=== PATIENT | female | born 1940 | race Caucasian/White ===

== ENCOUNTER 2016-06-26 08:06 | Inpatient (IN) | payer OTHER, MEDICARE ==
[2016-06-26] MEDS ORDERED: KETOROLAC TROMETHAMINE 30 MG/1 ML VIAL IVPUSH ONE (08:22)
[2016-06-26] MEDS ORDERED: KETOROLAC TROMETHAMINE 30 MG/1 ML VIAL ONE (08:23)
[2016-06-26] MEDS ORDERED: HYDROmorphone HCL CARPU-JECT 2 MG/1 ML DISP.SYRIN ONE (08:23)
[2016-06-26] MEDS ORDERED: HYDROmorphone HCL CARPU-JECT 1 MG/1 ML DISP.SYRIN IVPUSH ONE (08:23)
[2016-06-26 08:40] LABS: URINE APPEARANCE Slightly; URINE BILIRUBIN Negative (NEGATIVE); URINE GLUCOSE (UA) Negative (NEGATIVE); URINE KETONE Negative (NEGATIVE); URINE LEUK ESTERASE Trace (NEGATIVE); URINE NITRITE Negative (NEGATIVE); URINE PROTEIN Negative (NEGATIVE); URINE UROBILINOGEN 0.2 E.U/dl (0.2-1.0)
[2016-06-26 08:41] LABS: BASOPHIL 1.2 % (0-2.0); EOSINOPHIL 1.1 % (0-4.5); MCH 32.2 pg (25.7-33.7); MCHC 33.3 g/dl (32.0-36.0); MEAN CELL VOLUME 96.5 fl (80-96); MEAN PLT VOLUME 8.4 fl (7.5-11.1); NEUTROPHILS 73.4 % (42.8-82.8); PLATELET COUNT 222 K/MM3 (134-434); RDW 12.8 % (11.6-15.6); URINE BLOOD 3+ (NEGATIVE); URINE COLOR YELLOW; WHITE BLOOD COUNT 12.1 K/mm3 (4.0-10.0)
[2016-06-26 08:42] LABS: URINE BACTERIA MODERATE /hpf (NEGATIVE); URINE RBC 30-50 /hpf (0-3); URINE WBC 0-3 (3-5)
[2016-06-26 08:43] LABS: URINE MUCUS FEW
--- NOTE | 2016-06-26 08:44 | PDOC ---
History of Present Illness - General Chief Complaint: Pain, Acute Stated Complaint: LEFT FLANK PAIN Time Seen by Provider: 06/26/16 08:22 - History of Present Illness Initial Comments: 06/26/16 08:39 89-year-old female with a past medical history of prior left-sided kidney stones , most recently in 2013, when she had a 0.7 cm proximal left ureteral calculus, and was seen here in the emergency department She states that she did strain her urine, but does not think that she ever passed that stone, although the pain did resolve Surgical history-cholecystectomy Other medical history-hypertension The patient states that last evening she developed left flank pain radiating into her left abdomen, similar to her prior kidney stone type of pain She denies any dysuria urgency or frequency She states that she's had some diminished urine output She does feel nauseated, but has not vomited She denies any diarrhea She denies any gross hematuria She denies any fevers or chills She denies any right sided abdominal pain She denies any chest pain or shortness of breath Remainder the review of systems is negative Patient states that she is in severe pain at this time Past History - Past Medical History Allergies/Adverse Reactions: Allergies Allergy/AdvReac Type Severity Reaction Status Date / Time Penicillins Allergy Verified 06/26/16 08:07 Home Medications: Ambulatory Orders Nifedipine [Adalat cc] 90 mg PO DAILY 12/16/13 Levofloxacin [Levaquin -] 500 mg PO DAILY #7 tablet 06/27/16 Oxycodone HCl [Roxicodone -] 5 mg PO Q6H #20 tablet MDD 4 06/27/16 Tamsulosin HCl [Flomax] 0.4 mg PO DAILY #30 capsule 06/27/16 Anemia: No Asthma: No Cancer: Yes (basal cell of face) Cardiac Disorders: No CVA: No COPD: No CHF: No Dementia: No Diabetes: No GI Disorders: No Disorders: No HTN: Yes Hypercholesterolemia: No Kidney Stones: Yes Liver Disease: No Seizures: No Thyroid Disease: No - Surgical History Abdominal Surgery: No Appendectomy: No Cardiac Surgery: No Cholecystectomy: Yes Lung Surgery: No Neurologic Surgery: No Orthopedic Surgery: No - Psycho/Social/Smoking Cessation Hx Anxiety: No Suicidal Ideation: No Smoking History: Never smoked Hx Alcohol Use: No Drug/Substance Use Hx: No Substance Use Type: None Hx Substance Use Treatment: No Review of Systems - Review of Systems Able to Perform ROS?: Yes Comments:: 06/26/16 08:40 12 point review of systems is as per history of present illness and otherwise negative *Physical Exam - Vital Signs Last Vital Signs Temp Pulse Resp BP Pulse Ox 97.4 F L 71 18 174/104 100 06/26/16 08:06 06/26/16 08:06 06/26/16 08:06 06/26/16 08:06 06/26/16 08:06 - Physical Exam Comments: 06/26/16 08:41 Physical exam Last Vital Signs Temp Pulse Resp BP Pulse Ox 97.4 F L 71 18 174/104 100 06/26/16 08:06 06/26/16 08:06 06/26/16 08:06 06/26/16 08:06 06/26/16 08:06 GENERAL: The patient is awake, alert, and complaining of severe pain HEAD: Normal with no signs of trauma. EYES: Sclera anicteric ENT: Mucous membranes moist NECK: Normal range of motion, supple LUNGS: Breath sounds equal, clear to auscultation bilaterally. No wheezes, and no crackles. HEART: Regular rate and rhythm, normal S1 and S2 without murmur, rub or gallop. ABDOMEN: Soft, nontender, normoactive bowel sounds. No guarding, no rebound. No masses appreciated. There is no CVA tenderness, and no abdominal tenderness to palpation EXTREMITIES: Normal range of motion, no edema. No clubbing or cyanosis. No cords, erythema, or tenderness. NEUROLOGICAL: Cranial nerves II through XII grossly intact. Normal speech, normal gait. PSYCH: Normal mood, normal affect. SKIN: Warm, Dry, normal turgor, no rashes or lesions noted. ED Treatment Course - LABORATORY CBC & Chemistry Diagram: 06/27/16 07:30 06/27/16 07:30 - RADIOLOGY Radiology Studies Ordered: Category Date Time Status ABDOMEN & PELVIS CT W/O CONTR [CT] Stat CT Scan 06/26/16 08:36 Ordered - Medications Given in the ED: ED Medications Discontinued Medications Generic Name Dose Route Start Last Admin Trade Name Freq PRN Reason Stop Dose Admin Hydromorphone HCl 0.5 mg 06/26/16 08:23 06/26/16 08:27 Dilaudid Injection - IVPUSH 06/26/16 08:24 0.5 mg ONCE ONE Administration Ketorolac Tromethamine 15 mg 06/26/16 08:22 06/26/16 08:27 Toradol Injection - IVPUSH 06/26/16 08:23 15 mg ONCE ONE Administration Medical Decision Making - Medical Decision Making 06/26/16 08:42 Patient with a history of prior kidney stones on the left side, most recently in 2013, she had a 0.7 cm obstructing calculus in the proximal left ureter, with left sided hydronephrosis and hydroureter She did strain her urine, but thinks she never passed that stone, although the pain did go away She states with her prior kidney stones, she strained her urine, and was always able to retrieve the stone when it passed Given the above, will control pain, hydrate, and I would check a CT scan at this time/KSP 06/26/16 10:31 CT scan of the abdomen and pelvis as read by me There is ++ left hydronephrosis, proximal to a very large left proximal ureter stone (.7cm) There is inflammatory stranding around the kidney Other stones are noted that are nonobstructing There is a staghorn calculus on the right, without hydronephrosis or obstruction Awaiting radiology report Labwork is significant for white count of 12.1 BUN to creatinine 21 and 1.0 UA significant for 3+ blood, 30-50 red cells, 0-3 white cells, positive for moderate bacteria Laboratory Results - last 24 hr 06/26/16 06/26/16 06/26/16 08:20 08:20 08:20 WBC 12.1 H RBC 4.84 Hgb 15.6 H Hct 46.8 H MCV 96.5 H MCHC 33.3 RDW 12.8 Plt Count 222 MPV 8.4 D Neutrophils % 73.4 Lymphocytes % 15.8 D Monocytes % 8.5 Eosinophils % 1.1 D Basophils % 1.2 D Sodium 134 L Potassium 4.0 Chloride 99 Carbon Dioxide 26 Anion Gap 9 BUN 21 H Creatinine 1.1 D Creat Clearance w eGFR 48.42 Random Glucose 134 H Calcium 10.1 Total Bilirubin 0.8 AST 22 D ALT 19 D Alkaline Phosphatase 67 Total Protein 7.7 Albumin 4.1 Urine Color Yellow Urine Appearance Slightly Urine pH 7.0 D Ur Specific [place] 1.020 Urine Protein Negative Urine Glucose (UA) Negative Urine Ketones Negative Urine Blood 3+ H Urine Nitrite Negative Urine Bilirubin Negative Urine Urobilinogen 0.2 e.u/dl Ur Leukocyte Esterase Trace Urine RBC 30-50 Urine WBC 0-3 Ur Epithelial Cells Moderate Urine Bacteria Moderate Urine Mucus Few 06/26/16 10:46 High-grade obstruction, elevated white count, positive bacteria and urine Patient is ALLERGIC to penicillins-states that she gets hives Will give IV Levaquin Case discussed with Dr. Carmona-primary care physician Case discussed with Dr. Dr. [id number] with above-will see patient inpatient consultation 06/26/16 11:38 Case discussed with hospitalist-will admit/place in observation *DC/Admit/Observation/Transfer Diagnosis at time of Disposition: Left flank pain, Ureteral stone with hydronephrosis - Discharge Dispostion Condition at time of disposition: Stable Admit: Yes - Prescriptions - Referrals
[2016-06-26] MEDS ORDERED: SODIUM CHLORIDE 1,000 ML IV SCH ×2 (08:45→16:59)
[2016-06-26 08:48] LABS: ALBUMIN 4.1 g/dl (3.5-5.0); BILIRUBIN,TOTAL 0.8 mg/dl (0.2-1.0); CALCIUM 10.1 mg/dl (8.4-10.2); CREATININE 1.1 mg/dl (0.6-1.3); TOT PROT 7.7 g/dl (6.4-8.3)
[2016-06-26] MEDS ORDERED: ACETAMINOPHEN 1000 MG/100 ML VIAL (NON FORMULARY) IVPB ONE (09:08)
[2016-06-26] MEDS ORDERED: ACETAMINOPHEN INJECTION 100 ML IVPB ONE (09:14)
[2016-06-26] MEDS ORDERED: LEVOFLOXACIN 500 MG IVPB 100 ML IVPB ONE ×2 (10:47→11:12)
[2016-06-26] MEDS ORDERED: TAMSULOSIN HCL 0.4 MG CAP.ER.24H (FP) PO ONE (11:39)
[2016-06-26] MEDS ORDERED: TAMSULOSIN HCL 0.4 MG CAP.ER.24H (FP) ONE (11:50)
--- NOTE | 2016-06-26 12:49 | CON.GU ---
Consult Consult Specialty:: Urology Referred by:: Dr Carmona Reason for Consultation:: Left flank pain/renal colic - History of Present Illness Chief Complaint: Left flank pain - History Source History Provided By: Patient - Alcohol/Substance Use Hx Alcohol Use: No - Smoking History Smoking history: Never smoked Home Medications - Allergies Allergies/Adverse Reactions: Allergies Allergy/AdvReac Type Severity Reaction Status Date / Time Penicillins Allergy Verified 06/26/16 08:07 - Home Medications Home Medications: Ambulatory Orders Nifedipine [Adalat cc] 90 mg PO DAILY 12/16/13 Physical Exam- Vital Signs: Vital Signs Temperature 97.4 F L 06/26/16 08:06 Pulse Rate 71 06/26/16 08:06 Respiratory Rate 18 06/26/16 08:06 Blood Pressure 174/104 06/26/16 08:06 O2 Sat by Pulse Oximetry (%) 100 06/26/16 08:06 Labs: CBC, BMP 06/26/16 08:20 06/26/16 08:20 Assessment/Plan 76 yo female w long hx of renal calculi deferred tx now presents w left flank pain No f/c/ns no n/v Pt currently comfortable VSS normotensive hr 70 Left flank pain mild Abd soft WBC [address] reviewed Right partial staghorn left prox ureteral stone approx 7 mm w hydro Discussed options of eswl vs urs for left side stone currently causing symptoms Right would require mult procedures poss PCN nephrostolithotomy Currently no indication for stenting Cont iv abx strain urine analgesics prn
--- NOTE | 2016-06-26 16:25 | HP ---
CHIEF COMPLAINT: Left flank pain PCP: Kristine HISTORY OF PRESENT ILLNESS: This 76 year old female with pmhx of HTN with hx of Left sided kidney stone in 2013. At that time she was sent home with pain medication and did not follow up as symptoms resolved. Last night she experienced Left sided flank pain similar to her 2014 episode and it worsened to the point she presented to the ED. She states she pain medication has controlled the pain at this time. Recently, on Wednesday she underwent skin freezing to her Right check and inferior orbital region and had skin removed on the tip of her nose from basal cell carcinoma. She denies fever, chills, CP, abd pain, n, v, difficulty urinating. She does have urinary frequency but says this is a chronic problem related to age. ER course was notable for: (1) WBC 12.1 (2) CTAP shows hydronephrosis with approx 7 mm stone (3) Levaquin 500mg x1 Recent Travel: PAST MEDICAL HISTORY: HTN, basal cell carcinoma (nose) PAST SURGICAL HISTORY: see HPI Social History: Smoking: Alcohol: Drugs: Family History: Allergies Penicillins Allergy (Verified 06/26/16 08:07) HOME MEDICATIONS: Home Medications Medication Instructions Recorded Nifedipine [Adalat cc] 90 mg PO DAILY 12/16/13 REVIEW OF SYSTEMS CONSTITUTIONAL: Absent: fever, chills, diaphoresis, generalized weakness, malaise, loss of appetite, weight change HEENT: Absent: rhinorrhea, nasal congestion, throat pain, throat swelling, difficulty swallowing, mouth swelling, ear pain, eye pain, visual changes CARDIOVASCULAR: Absent: chest pain, syncope, palpitations, irregular heart rate, lightheadedness , peripheral edema RESPIRATORY: Absent: cough, shortness of breath, dyspnea with exertion, orthopnea, wheezing, stridor, hemoptysis GASTROINTESTINAL: Absent: abdominal pain, abdominal distension, nausea, vomiting, diarrhea, constipation, melena, hematochezia GENITOURINARY: L sided flank pain Absent: dysuria, frequency, urgency, hesitancy, hematuria, , genital pain MUSCULOSKELETAL: Absent: myalgia, arthralgia, joint swelling, back pain, neck pain SKIN: Absent: rash, itching, pallor HEMATOLOGIC/IMMUNOLOGIC: Absent: easy bleeding, easy bruising, lymphadenopathy, frequent infections ENDOCRINE: Absent: unexplained weight gain, unexplained weight loss, heat intolerance, cold intolerance NEUROLOGIC: Absent: headache, focal weakness or paresthesias, dizziness, unsteady gait, seizure, mental status changes, bladder or bowel incontinence PSYCHIATRIC: Absent: anxiety, depression, suicidal or homicidal ideation, hallucinations. PHYSICAL EXAMINATION Vital Signs - 24 hr 06/26/16 06/26/16 08:06 15:03 Temperature 97.4 F L 98.2 F Pulse Rate 71 Pulse Rate [ 73 Right] Respiratory 18 18 Rate Blood Pressure 174/104 Blood Pressure 116/65 [Left Arm] O2 Sat by Pulse 100 96 Oximetry (%) GENERAL: Awake, alert, and fully oriented, in no acute distress. HEAD: Normal with no signs of trauma. EYES: Pupils equal, round and reactive to light, extraocular movements intact, sclera anicteric, conjunctiva clear. No lid lag. EARS, NOSE, THROAT: Ears normal, nares patent, oropharynx clear without exudates. Moist mucous membranes. NECK: Normal range of motion, supple without lymphadenopathy, JVD, or masses. LUNGS: Breath sounds equal, clear to auscultation bilaterally. No wheezes, and no crackles. No accessory muscle use. HEART: Regular rate and rhythm, normal S1 and S2 without murmur, rub or gallop. ABDOMEN: Soft, nontender, not distended, normoactive bowel sounds, no guarding, no rebound, no masses. No hepatomegaly or splenomegaly. L sided flank tenderness MUSCULOSKELETAL: Normal range of motion at all joints. No bony deformities or tenderness. No CVA tenderness. UPPER EXTREMITIES: 2+ pulses, warm, well-perfused. No cyanosis. No clubbing. Cap refill <2 seconds. No peripheral edema. LOWER EXTREMITIES: 2+ pulses, warm, well-perfused. No calf tenderness. +1 le b/ l pitting edema . NEUROLOGICAL: Cranial nerves II-XII intact. Normal speech. Normal gait. PSYCHIATRIC: Cooperative. Good eye contact. Appropriate mood and affect. SKIN: Warm, dry, normal turgor, no rashes or lesions noted. Laboratory Results - last 24 hr 06/26/16 06/26/16 06/26/16 08:20 08:20 08:20 WBC 12.1 H RBC 4.84 Hgb 15.6 H Hct 46.8 H MCV 96.5 H MCHC 33.3 RDW 12.8 Plt Count 222 MPV 8.4 D Neutrophils % 73.4 Lymphocytes % 15.8 D Monocytes % 8.5 Eosinophils % 1.1 D Basophils % 1.2 D Sodium 134 L Potassium 4.0 Chloride 99 Carbon Dioxide 26 Anion Gap 9 BUN 21 H Creatinine 1.1 D Creat Clearance w eGFR 48.42 Random Glucose 134 H Calcium 10.1 Total Bilirubin 0.8 AST 22 D ALT 19 D Alkaline Phosphatase 67 Total Protein 7.7 Albumin 4.1 Urine Color Yellow Urine Appearance Slightly Urine pH 7.0 D Ur Specific [place] 1.020 Urine Protein Negative Urine Glucose (UA) Negative Urine Ketones Negative Urine Blood 3+ H Urine Nitrite Negative Urine Bilirubin Negative Urine Urobilinogen 0.2 e.u/dl Ur Leukocyte Esterase Trace Urine RBC 30-50 Urine WBC 0-3 Ur Epithelial Cells Moderate Urine Bacteria Moderate Urine Mucus Few CTAP reviewed Assessment: 76 year old female with HTN admitted with nephrolithiasis with hydronephrosis Plan: 1. b/l Nephrolithiasis with L 7mm with hydro - Continue IV abx and fluids - As d/w urology pt eswl vs urs for left side stone requiring multiple procedures - No acute indication for stent at this time - Monitor wbc, signs of evolving infection - Urology consult appreciated 2. HTN - Continue Nifedipine 3. DVT PPx - Heparin sq q8 Problem List - Problem (1) Left flank pain Code(s): R10.9 - UNSPECIFIED ABDOMINAL PAIN (2) Ureteral stone with hydronephrosis Code(s): N13.2 - HYDRONEPHROSIS WITH RENAL AND URETERAL CALCULOUS OBSTRUCTION (3) Renal colic on left side Code(s): N23 - UNSPECIFIED RENAL COLIC Visit type - Emergency Visit Emergency Visit: Yes Care time: The patient presented to the Emergency Department on the above date and was hospitalized for further evaluation of their emergent condition. - New Patient This patient is new to me today: Yes Date on this admission: 06/26/16 - Critical Care Critical Care patient: No
[2016-06-26] MEDS ORDERED: oxyCODONE HCL 5 MG TABLET PO PRN (16:59)
[2016-06-26 18:24] VITALS: BMI 31.8
[2016-06-27 05:44] VITALS: BP 133/70; PULSE 77; TEMP 98.6
[2016-06-27 08:24] LABS: BASOPHIL 0.4 % (0-2.0); MCH 32.8 pg (25.7-33.7); MCHC 34.1 g/dl (32.0-36.0); MEAN CELL VOLUME 96.2 fl (80-96); MEAN PLT VOLUME 8.8 fl (7.5-11.1); NEUTROPHILS 66.1 % (42.8-82.8); PLATELET COUNT 192 K/MM3 (134-434); RDW 12.6 % (11.6-15.6); WHITE BLOOD COUNT 8.4 K/mm3 (4.0-10.0)
[2016-06-27] MEDS ORDERED: TAMSULOSIN HCL 0.4 MG CAP.ER.24H (FP) PO SCH (08:30)
[2016-06-27 08:32] LABS: ALBUMIN 3.2 g/dl (3.5-5.0); ALK PHOS 57 U/L (32-92); ANION GAP 5 (8-16); BILIRUBIN,TOTAL 1.1 mg/dl (0.2-1.0); CALCIUM 9.4 mg/dl (8.4-10.2); CO2 26 mmol/L (22-28); CREATININE 0.9 mg/dl (0.6-1.3); GLUCOSE,RANDOM 104 mg/dl (74-106); MAGNESIUM 1.8 mg/dL (1.8-2.4); SGOT/AST 20 U/L (10-42); SGPT/ALT 17 U/L (10-40); TOT PROT 6.5 g/dl (6.4-8.3)
[2016-06-27] MEDS ORDERED: LEVOFLOXACIN 500 MG IVPB 100 ML IVPB SCH (10:00)
--- NOTE | 2016-06-27 10:51 | DS ---
Physical Exam: SUBJECTIVE: Patient seen and examined OBJECTIVE: Vital Signs Period Temp Pulse Resp BP Sys/Mccall Pulse Ox Last 24 Hr 98.4 F-98.6 F 77-87 16-19 133-159/70-72 92-92 Last Vital Signs Temp Pulse Resp BP Pulse Ox 98.6 F 77 19 133/70 92 L 06/27/16 04:00 06/27/16 04:00 06/27/16 09:00 06/27/16 04:00 06/27/16 09:00 Microbiology 06/26/16 10:45 Blood - Peripheral Venous Blood Culture - Preliminary NO GROWTH OBTAINED AFTER 24 HOURS, INCUBATION TO CONTINUE FOR 4 DAYS. 06/26/16 11:00 Blood - Peripheral Venous Blood Culture - Preliminary NO GROWTH OBTAINED AFTER 24 HOURS, INCUBATION TO CONTINUE FOR 4 DAYS. 06/26/16 08:18 Urine - Urine Clean Catch Urine Culture - Final NO GROWTH OBTAINED PHYSICAL EXAM GENERAL: The patient is awake, alert, and fully oriented, in no acute distress. HEAD: Normal with no signs of trauma. EYES: PERRL, extraocular movements intact, sclera anicteric, conjunctiva clear. ENT: Ears normal, nares patent, oropharynx clear without exudates, moist mucous membranes. NECK: Trachea midline, full range of motion, supple. LUNGS: Breath sounds equal, clear to auscultation bilaterally, no wheezes, no crackles, no accessory muscle use. HEART: Regular rate and rhythm, S1, S2 without murmur, rub or gallop. ABDOMEN: Soft, nontender, nondistended, normoactive bowel sounds, no guarding, no rebound, no hepatosplenomegaly, no masses. EXTREMITIES: 2+ pulses, warm, well-perfused, no edema. NEUROLOGICAL: Cranial nerves II through XII grossly intact. Normal speech, gait not observed. PSYCH: Normal mood, normal affect. SKIN: Warm, dry, normal turgor, no rashes or lesions noted. LABS Laboratory Results - last 24 hr 06/27/16 06/27/16 07:30 07:30 WBC 8.4 D RBC 4.39 Hgb 14.4 Hct 42.3 MCV 96.2 H MCHC 34.1 RDW 12.6 Plt Count 192 MPV 8.8 Neutrophils % 66.1 Lymphocytes % 19.6 D Monocytes % 11.9 H Eosinophils % 2.0 D Basophils % 0.4 Sodium 139 Potassium 3.9 Chloride 108 H Carbon Dioxide 26 Anion Gap 5 L BUN 14 D Creatinine 0.9 Creat Clearance w eGFR > 60 Random Glucose 104 D Calcium 9.4 Magnesium 1.8 Total Bilirubin 1.1 H D AST 20 ALT 17 Alkaline Phosphatase 57 Total Protein 6.5 Albumin 3.2 L D HOSPITAL COURSE: Date of Admission:06/26/16 Date of Discharge: 06/27/16 76 year old female with pmhx of HTN with hx of Left sided kidney stone in 2013. presented to the ER with c/o left sided flank pain similar to her 2014 episode. She reports that usually gets some relief from pain medication. Recently, on Wednesday she underwent skin freezing to her Right check and inferior orbital region and had skin removed on the tip of her nose from basal cell carcinoma. In ther ER, labs were drawn, a CT scan was done and pt was found to have : 0.6- 0.7 cm left ureteral stone with resultant hydronephrosis, Ua was consistent with UTI, pat was started on empiric ABT with levaquin,IV hydration, pain management, urology was consulted for assistance. Per urology may D/c pt home today on oral levaquin x7 more days and f/u in office as outpt, pt D/c home in stable condition, with instruction to f/u with urology and PCP, intruct to report to ER if develop fever/chills she verbalized understanding. Minutes to complete discharge: 35 Discharge Summary Reason For Visit: LEFT FLANK PAIN & HYDRONEPHROSIS Current Active Problems Left flank pain (Acute) Ureteral stone with hydronephrosis (Acute) Condition: Stable - Instructions Diet, Activity, Other Instructions: Strain all urine Encourage PO fluids Report to ER if develop fever/chills F/u with urology in 1 week F/u with PMD Referrals: Jackson Carmona MD [Primary Care Provider] - Disposition: HOME - Home Medications Comprehensive Discharge Medication List: Ambulatory Orders Nifedipine [Adalat cc] 90 mg PO DAILY 12/16/13 Levofloxacin [Levaquin -] 500 mg PO DAILY #7 tablet 06/27/16 Oxycodone HCl [Roxicodone -] 5 mg PO Q4H PRN 7 Days MDD 6 tabs 06/27/16 Tamsulosin HCl [Flomax -] 0.4 mg PO DAILY@0830 cap.er.24h 06/27/16 This patient is new to me today: Yes Date on this admission: 06/27/16 Emergency Visit: Yes ED Registration Date: 06/26/16 Care time: The patient presented to the Emergency Department on the above date and was hospitalized for further evaluation of their emergent condition. Critical Care patient: No - Discharge Referral Referred to [facility] Yes Physician Referral: Roderick Swan MD (Int Med)
== END 2016-06-27 11:30 | disposition home or self-care (01) | DRG 694 ==
LOC: FER 08:06 → FM/S 16:52
PROVIDERS: ADMIT Internal Medicine
DX: N13.2 Hydronephrosis with renal and ureteral calculous obstruction (principal); I10 Essential (primary) hypertension
CPT/HCPCS: 36415; 74176-TC; 80053; 81003; 81015; 83735; 85025; 87040; 87086; 99285-25

== ENCOUNTER 2016-07-10 06:31 | Day surgery (SDC) | payer OTHER, MEDICARE ==
[2016-07-09 16:48] VITALS: BMI 31.8
[~2016-07-10 06:31] MED LIST: LACTATED RINGERS SOLUTION 1,000 ML IV SCH; ONDANSETRON 4 MG/2 ML VIAL IVPUSH PRN; PROMETHAZINE HCL 25 MG/1 ML VIAL IVPUSH PRN
[2016-07-10] MEDS ORDERED: MIDAZOLAM HCL 2 MG/2 ML SINGLE DOSE VIAL ONE (07:56)
--- NOTE | 2016-07-10 08:01 | HP ---
History & Physical Update - History History: No Change - Physical Physical: No Change - Assessment Assessment: No Change - Plan Plan: No Change
[2016-07-10] MEDS ORDERED: IBUPROFEN 800 MG/8 ML IJ IVPB PRN (08:02)
[2016-07-10] MEDS ORDERED: ACETAMINOPHEN 1000 MG/100 ML VIAL (NON FORMULARY) IVPB ONE (08:02)
[2016-07-10] MEDS ORDERED: ONDANSETRON 4 MG/2 ML VIAL ONE (08:07)
[2016-07-10] MEDS ORDERED: ceFAZolin SODIUM 1 GM VIAL ONE (08:07)
[2016-07-10] MEDS ORDERED: DEXTROSE 5%-0.45% SALINE 1,000 ML IV SCH (08:15)
[2016-07-10] MEDS ORDERED: SUCCINYLCHOLINE CHLORIDE 200 MG/10 ML VIAL ONE (08:16)
[2016-07-10] MEDS ORDERED: PROPOFOL 20 ML ONE (08:16)
[2016-07-10] MEDS ORDERED: ACETAMINOPHEN INJECTION 100 ML IVPB ONE (08:48)
[2016-07-10 09:47] VITALS: TEMP 97.7
[2016-07-10 11:22] VITALS: BP 110/70; PULSE 66
--- NOTE | 2016-07-11 11:57 | OP ---
DATE OF OPERATION: 07/10/2016 PREOPERATIVE DIAGNOSIS: Obstructive left kidney, hydronephrosis, upper ureteral stone. POSTOPERATIVE DIAGNOSIS: Obstructive left kidney, hydronephrosis, upper ureteral stone. PROCEDURE: Cystoscopy, retrograde pyelogram, left ureteral stent placement. ANESTHESIA: General, Dr. Ulloa. FINDINGS: High-grade obstruction of the left ureter with a large stone and severe hydronephrosis. DRAINS: A 26 x 6 double-J ureteral stent. ESTIMATED BLOOD LOSS: None. SPECIMENS: Urine culture. PREOPERATIVE INDICATIONS: The patient is a 76-year-old female who presents to the office with a right-sided staghorn calculus with mild hydronephrosis and left-sided severe hydronephrosis with an obstructing stone in the upper ureter. She is feeling well. She was placed on antibiotics orally and was recommended she have a stent placed. She is planning to travel over the next week, and a ureteral stent to relieve high-grade obstruction was recommended. She comes to the OR. DESCRIPTION OF PROCEDURE: The patient was brought to the OR, placed on the table in the supine position, given general anesthesia and IV antibiotics and placed in the modified lithotomy position. Timeout was performed. Cystoscopy was performed. The urethra demonstrated a small urethral carbuncle, otherwise was normal. The bladder itself appeared to be unremarkable. Both UOs were visualized. A wire was passed up into the left ureteral orifice, over which an open-ended catheter was placed. Retrograde pyelogram revealed a high-grade obstruction in the upper ureter. No contrast reached above the level of the stone, which was in the upper ureter. The open-ended catheter was passed up to the level of the stone, and a Glidewire was needed to bypass the stone. There was some tortuosity of the ureter, but ultimately the wire and open-ended were manipulated so that the open-ended catheter could be passed into the renal pelvis itself. Retrograde pyelogram then confirmed placement into the kidney, with severe hydronephrosis. A PTFE guidewire was then passed through the open-ended catheter into the kidney, over which a 6 x 24 stent was placed; however, this appeared to be too short for this patient. It was replaced with a 6 x 26 double-J ureteral stent with 1 loop sitting in the renal pelvis, 1 loop in the bladder. The bladder was emptied, the patient was woken up. ARIANE TOBAR M.D. [id number]
== END 2016-07-10 10:30 | disposition home or self-care (01) ==
LOC: FASU 06:31
PROVIDERS: ATTEND Urology
PROC: BT1FZZZ Fluoroscopy of Left Kidney, Ureter and Bladder (ICD-10-PCS; 2016-07-10)
PROC: 0WHR8YZ Insertion of Other Device into Genitourinary Tract, Via Natural or Artificial Opening Endoscopic (ICD-10-PCS; 2016-07-10)
PROC: 0T7D8DZ Dilation of Urethra with Intraluminal Device, Via Natural or Artificial Opening Endoscopic (ICD-10-PCS; principal; 2016-07-10 08:00)
DX: N20.1 Calculus of ureter (principal); N13.30 Unspecified hydronephrosis; N28.89 Other specified disorders of kidney and ureter
CPT/HCPCS: 72170-TC; 76000-TC; 87086; 94760

== ENCOUNTER 2016-09-08 08:03 | Day surgery (SDC) | payer OTHER, MEDICARE ==
[2016-09-07 14:56] VITALS: BMI 29.2
[2016-09-08] MEDS ORDERED: MIDAZOLAM HCL 2 MG/2 ML SINGLE DOSE VIAL ONE (09:26)
[2016-09-08] MEDS ORDERED: PROPOFOL 20 ML ONE (09:26)
[2016-09-08] MEDS ORDERED: ACETAMINOPHEN 1000 MG/100 ML VIAL (NON FORMULARY) IVPB ONE ×2 (09:39→11:15)
--- NOTE | 2016-09-08 09:39 | HP ---
History & Physical Update - History History: No Change - Physical Physical: No Change - Assessment Assessment: No Change - Plan Plan: No Change
[2016-09-08] MEDS ORDERED: DEXTROSE 5%-0.45% SALINE 1,000 ML IV SCH (09:45)
[2016-09-08] MEDS ORDERED: ceFAZolin SODIUM 1 GM VIAL ONE (10:03)
[2016-09-08] MEDS ORDERED: ceFAZolin SODIUM 1 GM VIAL IVPB ONE (10:05)
[2016-09-08] MEDS ORDERED: ACETAMINOPHEN 325 MG TABLET (FP) PO PRN (10:39)
[2016-09-08] MEDS ORDERED: ONDANSETRON 4 MG/2 ML VIAL IVPUSH PRN (10:39)
[2016-09-08] MEDS ORDERED: LACTATED RINGERS SOLUTION 1,000 ML IV SCH (10:45)
[2016-09-08 13:01] VITALS: TEMP 98
[2016-09-08 14:07] VITALS: BP 115/67; PULSE 80
--- NOTE | 2016-10-13 10:40 | OP ---
DATE OF OPERATION: 09/08/2016 PREOPERATIVE DIAGNOSIS: Kidney stone. POSTOPERATIVE DIAGNOSIS: Kidney stone. PROCEDURE: Extracorporeal shock wave lithotripsy on the left side. ANESTHESIA: General. SURGEON: Home Walker MD FINDINGS: Stone. ESTIMATED BLOOD LOSS: Minimal. PREOPERATIVE INDICATION: The patient is a 76-year-old female who presented with an obstructing stone and had a stent placed at the time. She comes to the OR, now, for an extracorporeal shock wave lithotripsy. OPERATION: The patient was brought to the OR, placed on the table in the supine position, and given general anesthesia and IV antibiotics. A timeout was performed. The stone was visualized on fluoroscopy. There was a ureteral stent in place at this time. To the stone was then applied 2500 shocks. The patient tolerated the procedure well. She was then woken up. HOME WALKER M.D. RANJEET/[id number]
== END 2016-09-08 13:50 | disposition home or self-care (01) ==
LOC: JASU-SURG 08:03
PROVIDERS: ATTEND Urology
PROC: 0TF4XZZ Fragmentation in Left Kidney Pelvis, External Approach (ICD-10-PCS; principal; 2016-09-08 09:45)
DX: N20.0 Calculus of kidney (principal)
CPT/HCPCS: 94760

== ENCOUNTER 2018-07-26 09:09 | Day surgery (SDC) | payer OTHER, MEDICARE ==
[2018-07-21 11:49] VITALS: BMI 31.2
[2018-07-26] MEDS ORDERED: TETRACAINE 0.5% OPHTH SOLN 2 ML BOTTLE ONE (09:17)
[2018-07-26] MEDS ORDERED: LIDOCAINE 1%/EPI 1:100000 (20 ML MULTI DOSE VIAL) ONE (09:17)
[2018-07-26] MEDS ORDERED: ERYTHROMYCIN 0.5% OPHTHALMIC OINTMENT 3.5 GM TUBE ONE (09:17)
[2018-07-26] MEDS ORDERED: POVIDONE-IODINE 5% OPHTHALMIC PREP 30 ML SOLUTION ONE (09:17)
[2018-07-26] MEDS ORDERED: BUPIVACAINE HCL/PF 0.5% (5MG/ML) 10 ML VIAL ONE (09:17)
[2018-07-26] MEDS ORDERED: MIDAZOLAM HCL 2 MG/2 ML SINGLE DOSE VIAL ONE (11:28)
[2018-07-26] MEDS ORDERED: SUCCINYLCHOLINE CHLORIDE 200 MG/10 ML VIAL ONE (11:28)
[2018-07-26] MEDS ORDERED: PROPOFOL 20 ML ONE ×2 (11:28)
[2018-07-26] MEDS ORDERED: LIDOCAINE HCL/PF 2% SDV 5ML VIAL ONE (11:29)
[2018-07-26] MEDS ORDERED: KETOROLAC TROMETHAMINE 30 MG/1 ML VIAL ONE (11:42)
[2018-07-26] MEDS ORDERED: ceFAZolin SODIUM 1 GM VIAL ONE (11:42)
[2018-07-26] MEDS ORDERED: ONDANSETRON 4 MG/2 ML VIAL ONE (11:42)
[2018-07-26] MEDS ORDERED: DEXAMETHASONE SOD PHOSPHATE 4 MG/1 ML VIAL ONE (11:42)
[2018-07-26] MEDS ORDERED: BUPIVACAINE HCL/PF 0.5% (5MG/ML) 10 ML VIAL IJ ONE (11:56)
[2018-07-26] MEDS ORDERED: LIDOCAINE 1%/EPI 1:100000 (50 ML MULTI DOSE VIAL) NR ONE (11:56)
[2018-07-26] MEDS ORDERED: PROMETHAZINE HCL 25 MG/1 ML VIAL IVPUSH PRN (13:48)
[2018-07-26] MEDS ORDERED: ONDANSETRON 4 MG/2 ML VIAL IVPUSH PRN (13:48)
[2018-07-26] MEDS ORDERED: oxyCODONE HCL 5 MG TABLET PO PRN ×2 (13:48)
[2018-07-26 14:32] VITALS: TEMP 98.5
[2018-07-26 15:13] VITALS: BP 118/72; PULSE 74
--- NOTE | 2018-07-26 17:37 | OP ---
DATE OF OPERATION: 07/26/2018 PREOPERATIVE DIAGNOSIS: Extensive defect involving the full length of the left lower lid and mild canthus to the punctum status post basal cell excision. POSTOPERATIVE DIAGNOSIS: Extensive defect involving the full length of the left lower lid and mild canthus to the punctum status post basal cell excision. PROCEDURES: 1. Regularization and tailoring of defect left lower lid. 2. Partial conjuctivoplasty of the full length of the left upper lid to the left lower lid. 3. Conjunctivoplasty of the left inferior fornix. 4. Full-thickness skin graft of left postauricular region to the left lower lid. SURGEON: Jeff Montelongo MD ROLL SLICING MACHINE TENDER: None. ANESTHESIA: LMA. COMPLICATIONS: None. ESTIMATED BLOOD LOSS: 10 mL to 15 mL. OPERATIVE REPORT: The patient was brought to the operating room and placed on the operating room table. Vital signs were monitored by Anesthesia. The wound was photographed. Timeout was performed, and then the wound was measured at approximately 23- to 24-mm in width from the punctum to the lateral canthal remnant. Once the left lower lid width had been measured, patient was given intravenous sedation after a timeout was performed and a 50/50 mixture of 2% xylocaine 1:100,000 epinephrine and 0.5% Marcaine was injected diffusely throughout the left lower lid and subcutaneously centrally in the left upper lid and subconjunctivally in the left upper lid after eversion on the helix of the left ear and preauricular region. The patient was prepped and draped the usual sterile fashion exposing both eyes. The right eye was taped closed with a Steri-Strip. The wound was now measured with a caliper with tension on the wound edges and found to be 22 mm in width. Therefore, the lid was everted over Desmarres retractor and 22 mm wide. Tarsoconjunctival graft was marked out in the upper lid leaving at least 4 mm for the upper lid splitting. This tarsoconjunctival graft was incised with a number 11 blade and then dissected free of Villanueva's muscle so that the tarsoconjunctival graft hung freely in the defect in the left lower lid. Incisions were made in the medial and lateral remnants of the left lower lid to accommodate the anastomosis. Care was taken not to disturb the punctum which was right at the end of the dissection, and each arm of the tarsoconjunctival graft was then sutured to the tarsus medially and laterally with a 2 to 3 interrupted 6-0 Vicryl sutures creating the posterior anastomosis and inferior conjunctivoplasty preformed releasing the conjunctiva from its retractors. Conjunctiva was brought up and was sutured to the inferior edge of the new tarsoconjunctival graft with a running 6-0 chromic suture. Template was then placed over the defect, and then the left ear was secured to the pretragal region with 4-0 silk sutures. The template was placed on the postauricular marked with a sterile marking pen and injected with 2% xylocaine 1:100,000 epinephrine and then the skin graft was harvested full-thickness with a 15 blade cutting the perimeter in a wedge cut dissecting out the graft. Hemostasis was achieved with Yancey needle, and the wound was closed with running locking 3-0 chromic sutures and reinforced with interrupted 3-0 chromic sutures, and the helix sutures were removed. The graft was soaked in antibiotics, was thinned of all subcutaneous tissue, and pie crusted with a number 11 blade. It was oriented on the eyelid skin so the thin postauricular edge of the graft would be the superior edge of the margin and this was sutured to the conjunctival flap using running 6-0 chromic suture being careful to pick it up off the surface of the globe and incorporate the globe and then perimeter sutures were then placed of interrupted and running 6-0 plain suture with plastic technique covering the anterior lamella. Stripped Telfa was then placed over this, as was erythromycin ointment, and it was tied. There was a 4-0 silk suture in the upper lid which remained, and the 4-0 silk suture as passed below the graft and a bolster were placed over the stripped Telfa, and then the two sutures in the upper lid and lower cheek were tied together over the bolster keeping it in place. The eyelid was closed and then stripped Telfa, and eye patch and gentle fluff were placed over the eye and secured there with paper tape and Mastisol. Xeroform gauze was placed behind the ear, and the patient was taken to the recovery room in stable condition. JEFF MONTELONGO M.D. [id number]
== END 2018-07-26 15:15 | disposition home or self-care (01) ==
LOC: FASU 09:09
PROVIDERS: ATTEND Ophthalmology
PROC: 0HB3XZZ Excision of Left Ear Skin, External Approach (ICD-10-PCS; 2018-07-26)
PROC: 08RTX7Z Replacement of Left Conjunctiva with Autologous Tissue Substitute, External Approach (ICD-10-PCS; 2018-07-26)
PROC: 08RRX7Z Replacement of Left Lower Eyelid with Autologous Tissue Substitute, External Approach (ICD-10-PCS; principal; 2018-07-26 11:56)
DX: C44.1192 Basal cell carcinoma of skin of left lower eyelid, including canthus (principal); H02.89 Other specified disorders of eyelid
CPT/HCPCS: 94760

== ENCOUNTER 2018-08-30 09:35 | Day surgery (SDC) | payer OTHER, MEDICARE ==
[2018-08-30] MEDS ORDERED: MIDAZOLAM HCL 2 MG/2 ML SINGLE DOSE VIAL ONE (10:26)
[2018-08-30] MEDS ORDERED: ceFAZolin SODIUM 1 GM VIAL ONE (10:49)
[2018-08-30] MEDS ORDERED: DEXAMETHASONE SOD PHOSPHATE 4 MG/1 ML VIAL ONE (10:59)
[2018-08-30] MEDS ORDERED: ONDANSETRON 4 MG/2 ML VIAL ONE (10:59)
[2018-08-30] MEDS ORDERED: ONDANSETRON 4 MG/2 ML VIAL IVPUSH PRN (11:30)
[2018-08-30] MEDS ORDERED: LACTATED RINGERS SOLUTION 1,000 ML IV SCH (11:30)
--- NOTE | 2018-08-30 12:09 | OP ---
DATE OF OPERATION: 08/30/2018 PREOPERATIVE DIAGNOSIS: Ankyloblepharon, left. POSTOPERATIVE DIAGNOSIS: Ankyloblepharon, left. PROCEDURE: 1. Excision of ankyloblepharon left upper lid. 2. Reconstruction of left lower lid margin. SURGEON: Jeff Montelongo MD ANESTHESIA: Local with sedation. COMPLICATONS: None. ESTIMATED BLOOD LOSS: 3-4 mL. OPERATIVE REPORT: Patient was brought to the operating room, placed on the operating room table. Vital signs were monitored by Anesthesia. Patient was placed under local anesthesia, but subsequently was not oxygenating well, and therefore was placed under LMA. The time-out was performed and confirmed the side that had to be operated on. Then, 2% Xylocaine with 1:100,000 epinephrine and 7.5% Marcaine was injected subcutaneously in the central left upper lid and in the left lower lid and body of the graft for a total of 1 mL. Patient was prepped and draped in the usual sterile fashion exposing both eyes. Right eye taped manually closed. Then, 4-0 silk traction sutures were passed through the central lid margin of left upper lid. Lid was distracted after she was prepped and draped in the usual sterile fashion, and then Ki scissors used beveling more superiorly posteriorly to leave a conjunctival lip, and the eyelid was trimmed. Conjunctiva was then closed, but the eyelid was felt to still be too high, and therefore, further addition of skin was excised across the eyelid, and the conjunctiva was resutured with a running 6-0 plain suture to the anterior skin and muscle of the reconstructed lower lid, and this created a nice contour of the eyelid symmetric with the contralateral side, slightly higher in anticipation of some mild contraction and swelling from the injection. The lid was everted over the Desmarres retractor and trimmed overlying the low blepharon remnants, and small curette was used to smooth out this tissue. Erythromycin ointment was placed in the eye and on the lower lid, and the patient was awaken from anesthesia and taken to the recovery room. JEFF MONTELONGO M.D. [id number]
[2018-08-30 13:01] VITALS: TEMP 97.5
[2018-08-30 13:44] VITALS: BP 123/64; PULSE 82
--- NOTE | 2018-09-01 16:00 | PATH ---
Surgical Pathology Report Patient Name: EMILEE ALDANA [facility]. Rec. #: [id number] /Age/Gender: 1940 (Age: 78) / F Account: [id number] Location: [facility] Taken: 08/30/2018 Received: 08/30/2018 Reported: 09/01/2018 Physicians: Carter Youssef Specimen(s) Received ANKYLOBLEPHARON / GRAFT LEFT EYELID Clinical History Basal cell carcinoma left lower eyelid Final Diagnosis ANKYLOBLEPHARON / GRAFT LEFT EYELID, EXCISION: SKIN WITH NO PATHOLOGIC FINDINGS. Electronically Signed Lacy Dawn M.D. Gross Description Received in formalin labeled "ankyloblepharon graft left eyelid," is a 0.3 x 0.1 x 0.1 cm hurtado skin fragment. The specimen is submitted in toto in one cassette. /08/31/2018 [facility]08/31/2018
== END 2018-08-30 13:44 | disposition home or self-care (01) ==
LOC: FASU 09:35
PROVIDERS: ATTEND Ophthalmology
PROC: 08BR0ZZ Excision of Left Lower Eyelid, Open Approach (ICD-10-PCS; principal; 2018-08-30 10:49)
DX: H02.525 Blepharophimosis left lower eyelid (principal); C44.1192 Basal cell carcinoma of skin of left lower eyelid, including canthus
CPT/HCPCS: 88302-TC; 94760

== ENCOUNTER 2020-07-02 11:05 | Emergency (ER) | payer OTHER, MEDICARE ==
[2020-07-02 11:20] VITALS: BP 161/85; PULSE 88; TEMP 97.7; BMI 30.4
[2020-07-02] MEDS ORDERED: SODIUM CHLORIDE 0.9% 1000 ML INFUS.BAG IV ONE (11:37)
[2020-07-02] MEDS ORDERED: ONDANSETRON 4 MG/2 ML VIAL IVPUSH ONE (11:37)
[2020-07-02] MEDS ORDERED: ACETAMINOPHEN 1000 MG/100 ML VIAL (NON FORMULARY) IVPB ONE (11:37)
[2020-07-02] MEDS ORDERED: ONDANSETRON 4 MG/2 ML VIAL ONE (11:53)
[2020-07-02] MEDS ORDERED: ACETAMINOPHEN INJECTION 100 ML IVPB ONE (11:54)
[2020-07-02 12:09] LABS: BASO % 1.1 % (0-2.0); EOS % 0.6 % (0-4.5); HEMATOCRIT 43.8 % (32.4-45.2); HEMOGLOBIN 14.4 GM/dl (10.7-15.3); LYMPH % 11.2 % (8-40); MCH 31.3 pg (25.7-33.7); MEAN CELL VOLUME 94.9 fl (80-96); MEAN PLT VOLUME 8.8 fl (7.5-11.1); MONO % 7.5 % (3.8-10.2); NEUT % 79.6 % (42.8-82.8); PLATELET COUNT 152 K/MM3 (134-434); RBC 4.62 M/mm3 (3.60-5.2); RDW 12.8 % (11.6-15.6); WHITE BLOOD COUNT 11.4 K/mm3 (4.0-10.8)
[2020-07-02 12:17] LABS: ALBUMIN 4.2 g/dl (3.4-5.0); CALCIUM 10.6 mg/dl (8.5-10); CREATININE 1.4 mg/dl (0.55-1.3); TOT PROT 7.3 g/dl (6.4-8.2)
[2020-07-02 12:20] LABS: EPITHELIAL CELLS MODERATE /hpf
[2020-07-02] MEDS ORDERED: morphine CARPU-JECT 4 MG/1 ML DISP.SYRIN IVPUSH ONE (13:49)
[2020-07-02] MEDS ORDERED: morphine SULFATE 4 MG/ML VIAL ONE (13:50)
== END 2020-07-02 14:30 | disposition home or self-care (01) ==
LOC: FER 11:05
PROC: 3E033NZ Introduction of Analgesics, Hypnotics, Sedatives into Peripheral Vein, Percutaneous Approach (ICD-10-PCS; principal; 2020-07-02)
PROC: 3E033GC Introduction of Other Therapeutic Substance into Peripheral Vein, Percutaneous Approach (ICD-10-PCS; 2020-07-02)
DX: N23 Unspecified renal colic (principal); N13.2 Hydronephrosis with renal and ureteral calculous obstruction
CPT/HCPCS: 36415; 74178-TC; 80053; 81003; 81015; 85025; 87086; 87186; 99285-25; J0131

== ENCOUNTER 2020-07-19 04:51 | Day surgery (SDC) | payer OTHER, MEDICARE ==
[2020-07-16 13:00] VITALS: BMI 30.4
[2020-07-19] MEDS ORDERED: PROPOFOL 20 ML ONE (14:07)
[2020-07-19] MEDS ORDERED: oxyCODONE HCL 5 MG TABLET PO PRN (14:13)
[2020-07-19] MEDS ORDERED: PROMETHAZINE HCL 25 MG/1 ML VIAL IVPUSH PRN (14:13)
[2020-07-19] MEDS ORDERED: ONDANSETRON 4 MG/2 ML VIAL IVPUSH PRN (14:13)
[2020-07-19] MEDS ORDERED: ACETAMINOPHEN 1000 MG/100 ML VIAL (NON FORMULARY) IVPB ONE (14:24)
[2020-07-19] MEDS ORDERED: DEXTROSE 5%-0.45% SALINE 1,000 ML IV SCH (14:30)
[2020-07-19] MEDS ORDERED: IBUPROFEN 800 MG/8 ML IJ IVPB SCH (14:30)
[2020-07-19] MEDS ORDERED: ceFAZolin SODIUM 1 GM VIAL IVPB ONE (14:45)
[2020-07-19] MEDS ORDERED: ACETAMINOPHEN INJECTION 100 ML IVPB ONE (15:31)
[2020-07-19 16:56] VITALS: BP 126/70; PULSE 67; TEMP 97.3
== END 2020-07-19 17:05 | disposition home or self-care (01) ==
LOC: JASU-SURG 04:51
PROVIDERS: ATTEND Urology
PROC: 0TF78ZZ Fragmentation in Left Ureter, Via Natural or Artificial Opening Endoscopic (ICD-10-PCS; principal; 2020-07-19 14:30)
PROC: 0T778DZ Dilation of Left Ureter with Intraluminal Device, Via Natural or Artificial Opening Endoscopic (ICD-10-PCS; 2020-07-19 14:30)
PROC: BT1FYZZ Fluoroscopy of Left Kidney, Ureter and Bladder using Other Contrast (ICD-10-PCS; 2020-07-19 14:30)
DX: N13.2 Hydronephrosis with renal and ureteral calculous obstruction (principal)
CPT/HCPCS: 76000-TC-FY; 94760; J0131

== ENCOUNTER 2021-06-01 17:50 | Inpatient (IN) | payer OTHER, MEDICARE ==
[2021-06-01 19:09] LABS: INR 1.22 (0.83-1.09); PROTHROMBIN TIME (PATIENT) 13.5 SEC (9.7-13.0)
[2021-06-01 19:17] LABS: ALBUMIN 3.2 g/dl (3.4-5.0); BILIRUBIN,TOTAL 0.8 mg/dl (0.2-1); CALCIUM 9.5 mg/dl (8.5-10); TOT PROT 6.5 g/dl (6.4-8.2)
[2021-06-01 19:35] LABS: HEMATOCRIT 39.9 % (32.4-45.2); HEMOGLOBIN 13.5 GM/dL (10.7-15.3); MCH 31.1 pg (25.7-33.7); MEAN CELL VOLUME 91.6 fl (80-96); MEAN PLT VOLUME 8.7 fl (7.5-11.1); PLATELET COUNT 126 10^3/uL (134-434); RBC 4.36 M/mm3 (3.60-5.2); RDW 13.3 % (11.6-15.6); WHITE BLOOD COUNT 6.8 K/mm3 (4.0-10.0)
[2021-06-01] MEDS ORDERED: DEXAMETHASONE SOD PHOSPHATE 10 MG/1 ML VIAL IVPUSH ONE (20:14)
[2021-06-01 20:22] LABS: OVALOCYTE 1+; PLATELET ESTIMATE ADEQUATE
[2021-06-01] MEDS ORDERED: DEXAMETHASONE SOD PHOSPHATE 10 MG/1 ML VIAL ONE (20:49)
[2021-06-01 21:18] LABS: MAGNESIUM 1.7 mg/dL (1.8-2.4)
[2021-06-02] MEDS ORDERED: ALBUTEROL SO4 HFA INHALER IH PRN ×2 (07:21→20:44)
[2021-06-02] MEDS ORDERED: ACETAMINOPHEN 325 MG TABLET (FP) PO PRN ×2 (07:29→20:44)
[2021-06-02] MEDS ORDERED: SODIUM CHLORIDE 1,000 ML IV SCH ×2 (07:30→20:44)
[2021-06-02] MEDS ORDERED: NIFEdipine E.R. 90 MG TABLET PO SCH (10:00)
[2021-06-02] MEDS ORDERED: DEXAMETHASONE SOD PHOSPHATE 10 MG/1 ML VIAL IVPUSH SCH (10:00)
[2021-06-02] MEDS ORDERED: BUDESONIDE/FORMETEROL FUMARATE 160/4.5 mcg INHALER IH SCH (10:00)
[2021-06-02] MEDS ORDERED: ENOXAPARIN NA (PORCINE) 40 MG/0.4 ML DISP.SYRIN SQ SCH (10:00)
[2021-06-02] MEDS ORDERED: DEXAMETHASONE SOD PHOSPHATE 4 MG/1 ML VIAL ONE (12:06)
[2021-06-02] MEDS ORDERED: NIFEdipine E.R. 30 MG TABLET ONE (12:06)
[2021-06-02] MEDS ORDERED: ENOXAPARIN NA (PORCINE) 60 MG/0.6 ML DISP.SYRIN SQ ONE (12:07)
[2021-06-02] MEDS ORDERED: MAGNESIUM SULF 50% (8.12 MEQ/2 ML-1 GM VIAL) IVPB ONE (12:39)
[2021-06-02 13:34] LABS: ALBUMIN 2.9 g/dl (3.4-5.0); BILIRUBIN,TOTAL 0.6 mg/dl (0.2-1); CALCIUM 9.3 mg/dl (8.5-10); CREATININE 0.8 mg/dl (0.55-1.3); MAGNESIUM 1.8 mg/dL (1.8-2.4); TOT PROT 5.8 g/dl (6.4-8.2)
[2021-06-02] MEDS ORDERED: MAGNESIUM 1GM/D5W - 2 GM/200 ML IVPB IVPB ONE (13:53)
[2021-06-02] MEDS ORDERED: DEXAMETHASONE SOD PHOSPHATE 4 MG/1 ML VIAL IVPUSH SCH (15:00)
[2021-06-02 15:35] LABS: BASO % 0.2 % (0-2.0); HEMATOCRIT 38.3 % (32.4-45.2); HEMOGLOBIN 13.2 GM/dL (10.7-15.3); LYMPH % 24.4 % (8-40); MCH 31.6 pg (25.7-33.7); MCHC 34.4 g/dl (32.0-36.0); MEAN PLT VOLUME 8.7 fl (7.5-11.1); MONO % 6.4 % (3.8-10.2); PLATELET COUNT 133 10^3/uL (134-434); RBC 4.16 M/mm3 (3.60-5.2); RDW 13.6 % (11.6-15.6); WHITE BLOOD COUNT 6.9 K/mm3 (4.0-10.0)
[2021-06-02] MEDS: BUDESONIDE/FORMETEROL FUMARATE 160/4.5 mcg INHALER IH SCH (22:21)
[2021-06-02 23:21] LABS: ARTERIAL BLD GAS O2 SATURATION 90.1 % (95-98); ARTERIAL BLOOD GAS BASE EXCESS 0.2 mmol/L (-2-2); ARTERIAL BLOOD GAS PO2 52.9 mmHg (80-100); ARTERIAL BLOOD GAS pH 7.481 (7.350-7.450)
[2021-06-02 23:22] LABS: ALLENS TEST POSITIVE
[2021-06-03] MEDS ORDERED: ACETAMINOPHEN 1000 MG/100 ML BAG IVPB ONE ×2 (02:05→14:40)
[2021-06-03 05:53] VITALS: BMI 24.9
[2021-06-03 09:40] LABS: BASO % 0.3 % (0-2.0); HEMATOCRIT 37.5 % (32.4-45.2); HEMOGLOBIN 12.8 GM/dL (10.7-15.3); LYMPH % 17.8 % (8-40); MCH 31.2 pg (25.7-33.7); MEAN CELL VOLUME 91.8 fl (80-96); MEAN PLT VOLUME 8.4 fl (7.5-11.1); MONO % 4.3 % (3.8-10.2); NEUT % 77.6 % (42.8-82.8); PLATELET COUNT 148 10^3/uL (134-434); RBC 4.09 M/mm3 (3.60-5.2); RDW 13.6 % (11.6-15.6); WHITE BLOOD COUNT 6.9 K/mm3 (4.0-10.0)
[2021-06-03] MEDS ORDERED: REMDESIVIR 200 MG in SODIUM CHLORIDE 250 ML IVPB ONE (10:00)
[2021-06-03] MEDS ORDERED: ENOXAPARIN NA (PORCINE) 40 MG/0.4 ML DISP.SYRIN SQ SCH (10:00)
[2021-06-03] MEDS ORDERED: NIFEdipine E.R. 90 MG TABLET PO SCH (10:00)
[2021-06-03] MEDS ORDERED: FUROSEMIDE 20 MG TABLET (FP) PO SCH (10:00)
[2021-06-03] MEDS ORDERED: DEXAMETHASONE SOD PHOSPHATE 4 MG/1 ML VIAL IVPUSH SCH (10:00)
[2021-06-03 10:05] LABS: CALCIUM 9.1 mg/dL (8.5-10.1)
[2021-06-03 10:06] LABS: ALBUMIN 2.8 g/dl (3.4-5.0); BLOOD UREA NITROGEN 24.7 mg/dL (7-18); MAGNESIUM 2.3 mg/dL (1.8-2.4)
[2021-06-03 10:09] LABS: CREATININE 0.9 mg/dL (0.55-1.3)
[2021-06-03 10:10] LABS: BILIRUBIN,TOTAL 0.5 mg/dL (0.2-1)
[2021-06-03 10:11] LABS: TOT PROT 5.9 g/dl (6.4-8.2)
[2021-06-03] MEDS: BUDESONIDE/FORMETEROL FUMARATE 160/4.5 mcg INHALER IH SCH ×2 (10:20→21:13)
[2021-06-03] MEDS ORDERED: ACETAMINOPHEN 500 MG TABLET (FP) PO ONE (14:39)
[2021-06-03 15:03] LABS: EPI CELLS 29 /uL (0-25.1); HYALINE CASTS 1 /uL (0-3.1); PH,URINE 5.5 (5.0-8.0); URINE APPEARANCE CLEAR; URINE BACTERIA 40 /uL (0-1359); URINE BILIRUBIN NEGATIVE (NEGATIVE); URINE COLOR YELLOW; URINE GLUCOSE (UA) NEGATIVE (NEGATIVE); URINE KETONE NEGATIVE (NEGATIVE); URINE LEUK ESTERASE NEGATIVE (NEGATIVE); URINE NITRITE NEGATIVE (NEGATIVE); URINE PROTEIN 1+ (NEGATIVE); URINE RBC 56 /uL (0-23.9); URINE UROBILINOGEN 0.2 mg/dL (0.2-1.0); URINE WBC 10 /uL (0-25.8)
[2021-06-03] MEDS ORDERED: SODIUM CHLORIDE IVPB ONE (17:00)
[2021-06-03] MEDS ORDERED: TOCILIZUMAB IVPB ONE (17:00)
[2021-06-03] MEDS ORDERED: ALBUTEROL SO4 HFA INHALER IH PRN (23:43)
[2021-06-03] MEDS ORDERED: ACETAMINOPHEN 325 MG TABLET (FP) PO PRN (23:43)
[2021-06-04 08:31] LABS: HEMOGLOBIN 14.5 GM/dL (10.7-15.3); MCH 30.7 pg (25.7-33.7); MCHC 32.9 g/dl (32.0-36.0); MEAN CELL VOLUME 93.4 fl (80-96); MEAN PLT VOLUME 8.2 fl (7.5-11.1); PLATELET COUNT 203 10^3/uL (134-434); RBC 4.72 M/mm3 (3.60-5.2); RDW 13.9 % (11.6-15.6); WHITE BLOOD COUNT 6.3 K/mm3 (4.0-10.0)
[2021-06-04] MEDS ORDERED: REMDESIVIR 100 MG in SODIUM CHLORIDE 250 ML IVPB SCH (10:00)
[2021-06-04] MEDS: NIFEdipine E.R. 90 MG TABLET PO SCH (10:17)
[2021-06-04] MEDS: DEXAMETHASONE SOD PHOSPHATE 4 MG/1 ML VIAL IVPUSH SCH (10:17)
[2021-06-04] MEDS: PANTOPRAZOLE 40 MG TABLET PO SCH (10:17)
[2021-06-04] MEDS: ENOXAPARIN NA (PORCINE) 40 MG/0.4 ML DISP.SYRIN SQ SCH (10:18)
[2021-06-04] MEDS: REMDESIVIR 100 MG in SODIUM CHLORIDE 250 ML IVPB SCH (10:23)
[2021-06-04] MEDS: BUDESONIDE/FORMETEROL FUMARATE 160/4.5 mcg INHALER IH SCH ×2 (11:08→21:32)
[2021-06-04 12:19] LABS: BLOOD UREA NITROGEN 23.1 mg/dL (7-18); CALCIUM 9.2 mg/dL (8.5-10.1); MAGNESIUM 2.3 mg/dL (1.8-2.4)
[2021-06-04 12:22] LABS: BILIRUBIN,TOTAL 0.5 mg/dL (0.2-1); CREATININE 0.9 mg/dL (0.55-1.3); PHOSPHOROUS 2.8 mg/dL (2.5-4.9)
[2021-06-04 12:23] LABS: TOT PROT 6.6 g/dl (6.4-8.2)
[2021-06-04 16:51] LABS: ARTERIAL BLD GAS O2 SATURATION 92.6 % (95-98); ARTERIAL BLOOD GAS BASE EXCESS -2.3 mmol/L (-2-2); ARTERIAL BLOOD GAS PO2 64.1 mmHg (80-100); ARTERIAL BLOOD GAS pH 7.397 (7.350-7.450)
[2021-06-04 16:53] LABS: ALLENS TEST POSITIVE; VENT MODE BIPAP; VENT RATE 16
[2021-06-05 07:26] LABS: HEMATOCRIT 41.2 % (32.4-45.2); MCH 31.5 pg (25.7-33.7); MCHC 34.1 g/dl (32.0-36.0); MEAN CELL VOLUME 92.3 fl (80-96); PLATELET COUNT 197 10^3/uL (134-434); RBC 4.46 M/mm3 (3.60-5.2); RDW 13.9 % (11.6-15.6); WHITE BLOOD COUNT 8.8 K/mm3 (4.0-10.0)
[2021-06-05 08:04] LABS: BLOOD UREA NITROGEN 32.7 mg/dL (7-18)
[2021-06-05 08:05] LABS: MAGNESIUM 2.2 mg/dL (1.8-2.4)
[2021-06-05 08:07] LABS: ALBUMIN 2.6 g/dl (3.4-5.0); CALCIUM 9.4 mg/dL (8.5-10.1)
[2021-06-05 08:08] LABS: URIC ACID 7.5 mg/dL (2.6-7.2)
[2021-06-05 08:10] LABS: PHOSPHOROUS 2.8 mg/dL (2.5-4.9)
[2021-06-05 08:11] LABS: BILIRUBIN,TOTAL 0.5 mg/dL (0.2-1); TOT PROT 5.9 g/dl (6.4-8.2)
[2021-06-05] MEDS ORDERED: DEXTROSE 5%-0.45% SALINE 1,000 ML IV SCH (08:15)
[2021-06-05] MEDS ORDERED: SODIUM CHLORIDE 0.45% 1,000 ML IV SCH (08:15)
[2021-06-05] MEDS: guaiFENesin 600 MG TABLET.ER (FP) PO SCH ×2 (09:41→22:43)
[2021-06-05] MEDS: NIFEdipine E.R. 90 MG TABLET PO SCH (09:41)
[2021-06-05] MEDS: DEXAMETHASONE SOD PHOSPHATE 4 MG/1 ML VIAL IVPUSH SCH (09:42)
[2021-06-05] MEDS: PANTOPRAZOLE 40 MG TABLET PO SCH (09:42)
[2021-06-05] MEDS: ENOXAPARIN NA (PORCINE) 40 MG/0.4 ML DISP.SYRIN SQ SCH (09:42)
[2021-06-05] MEDS: BUDESONIDE/FORMETEROL FUMARATE 160/4.5 mcg INHALER IH SCH ×2 (10:22→22:47)
[2021-06-05] MEDS: REMDESIVIR 100 MG in SODIUM CHLORIDE 250 ML IVPB SCH (11:33)
[2021-06-05] MEDS ORDERED: SODIUM CHLORIDE 250 ML IV STA (12:10)
[2021-06-05] MEDS ORDERED: dilTIAZem HCL 50 MG/10 ML - 10 ML VIAL IVPUSH ONE (12:11)
[2021-06-05] MEDS ORDERED: APIXABAN 2.5 MG TABLET PO SCH ×2 (12:14→22:00)
[2021-06-05] MEDS ORDERED: ENOXAPARIN NA (PORCINE) 30 MG/0.3 ML DISP.SYRIN SQ ONE (12:17)
[2021-06-05] MEDS ORDERED: dilTIAZem HCL 50 MG/10 ML - 10 ML VIAL IVPUSH PRN (12:19)
[2021-06-05] MEDS ORDERED: dilTIAZem HCL 25 MG/5 ML - 5 ML VIAL IVPUSH PRN (12:26)
[2021-06-05] MEDS: ALPRAZolam 0.25 MG TABLET PO PRN ×2 (16:49→22:43)
[2021-06-05] MEDS ORDERED: APIXABAN 5 MG TABLET PO SCH (22:00)
[2021-06-06] MEDS ORDERED: RAPID SEQUENCE INTUBATION KIT NR ONE (01:53)
[2021-06-06 05:10] VITALS: BP 114/87; PULSE 115; TEMP 98.4
== END 2021-06-06 08:06 | disposition expired | DRG 177 ==
LOC: FER 17:50 → J8W 06-02 20:21 → J4W 06-03 23:51
PROVIDERS: ADMIT Internal Medicine; ATTEND Internal Medicine
PROC: XW033E5 Introduction of Remdesivir Anti-infective into Peripheral Vein, Percutaneous Approach, New Technology Group 5 (ICD-10-PCS; principal; 2021-06-02)
PROC: 5A12012 Performance of Cardiac Output, Single, Manual (ICD-10-PCS; 2021-06-05)
DX: U07.1 COVID-19 (principal); J12.82 Pneumonia due to coronavirus disease 2019; J96.01 Acute respiratory failure with hypoxia; E87.1 Hypo-osmolality and hyponatremia; E83.42 Hypomagnesemia; I48.91 Unspecified atrial fibrillation; F41.9 Anxiety disorder, unspecified; E86.0 Dehydration
CPT/HCPCS: 36415; 36600; 71045-TC-FY; 71275-TC; 80053; 81003; 82232; 82550; 82728; 82803; 82962; 83605; 83615; 83735; 84100; 84484; 84550; 85025; 85027; 85379; 85610; 85730; 86140; 86480; 86705; 86803; 86850; 86900; 86901; 87340; 87517; 87804; 88300-TC; 93005; 93010; 94660; 97116-GP; 97162-GP; 99285-25; C9399; C9803; J0131; J1100; J3262; Q9967; U0003; U0005